=== PATIENT | female | born 1990 | race Caucasian/White ===

== ENCOUNTER 2018-12-16 07:42 | Emergency (ER) | payer MEDICAID ==
[~2018-12-16] VITALS: Ht 170.2 cm; Wt 144.2 kg
[2018-12-16 08:12] VITALS: BP 134/74
--- NOTE | 2018-12-16 08:12 | NUR ---
Pt taken to bed 2 triaged at bedside.
--- NOTE | 2018-12-16 08:15 | NUR ---
Pt presents to ED with complaints of epigastric pain that started this morning. Pt states she was diagnosed with pancreatitis 2 weeks ago from her medications she takes at home. Patient states this pain started this morning with nausea and vomiting. No active vomiting at this time. Pt c/o 9/10 pain, sharp, non radiating. AOX4, clear speech. Abdomen soft, active bowel sounds x 4 quadrants. Denies diarrhea. Denies fever c/o chills.
[2018-12-16] MEDS ORDERED: ONDANSETRON 4 MG/2 ML VIAL IVP ONE (08:50)
[2018-12-16] MEDS ORDERED: NACL 0.9% 1,000 ML IV ONE (08:50)
[2018-12-16] MEDS ORDERED: MORPHINE SULFATE 4 MG/ML SYR IVP ONE ×3 (08:50→11:25)
--- NOTE | 2018-12-16 09:01 | NUR ---
Pt report given to June MOSES. Transfer of care at this time.
[2018-12-16 09:11] LABS: BASOPHILS % (AUTO) 0.5 % (0.0-2.0); EOSINOPHILS % (AUTO) 1.1 % (0.0-4.0); HEMATOCRIT 34.3 % (36-48); LYMPHOCYTES % (AUTO) 24.6 % (20.5-51.1); MEAN CORPUSCULAR HEMOGLOBIN 26 pg (27-31); MEAN CORPUSCULAR HGB CONC 32 g/dL (33-37); MEAN CORPUSCULAR VOLUME 82.3 fL (80-94); MONOCYTES # (AUTO) 0.3 K/uL (0.8-1.0); MONOCYTES % (AUTO) 8.2 % (1.7-9.3); NEUTROPHILS # (AUTO) 2.8 K/uL (1.8-7.7); NEUTROPHILS % (AUTO) 65.6 % (42.2-75.2); PLATELET COUNT (AUTO) 240 K/uL (140-450); RED BLOOD CELL COUNT(AUTO) 4.17 MIL/uL (4.20-5.40); RED CELL DISTRIBUTION WIDTH 16.4 % (11.6-13.7); WHITE BLOOD COUNT (AUTO) 4.2 K/uL (4.8-10.8)
--- NOTE | 2018-12-16 09:45 | NUR ---
PT STATES STILL HAVING 9/[address] ARZATE NOTIFIED.
[2018-12-16 10:05] LABS: ANION GAP 15.2 (8-16); CARBON DIOXIDE 25.7 mmol/L (21-32); CREATININE 0.7 mg/dL (0.6-1.3); POTASSIUM 3.9 mmol/L (3.5-5.1)
[2018-12-16 10:16] LABS: ALBUMIN 3.5 g/dL (3.4-5.0); TOTAL BILIRUBIN 0.1 mg/dL (0.0-1.0)
[2018-12-16 10:24] LABS: APPEARANCE,URINE HAZY (CLEAR); BILIRUBIN,URINE NEGATIVE (NEGATIVE); BLOOD, URINE 3+ (NEGATIVE); COLOR,URINE YELLOW (YELLOW); LEUKOCYTE ESTERASE ,URINE NEGATIVE (NEGATIVE); NITRITE, URINE NEGATIVE (NEGATIVE); PH,URINE 6.5 (5.0-9.0); UGLUCOSE NEGATIVE (NEGATIVE)
--- NOTE | 2018-12-16 10:26 | NUR ---
pt states feeling better at this time. Her pain level is 5/10.
--- NOTE | 2018-12-16 10:30 | NUR ---
PT IS TAKEN TO DO CT SCAN BY SOCIAL SCIENCES INSTRUCTOR VIA WHEELCHAIR.
--- NOTE | 2018-12-16 10:50 | NUR ---
PT IS BACK FROM CT SCAN VIA WHEELCHAIR ASSISTANCE BY MANAGER OCCUPATIONAL.
[2018-12-16 11:02] LABS: RBC,URINE 0-5 /HPF (0-5); WBC,URINE 0-5 /HPF (0-5)
[2018-12-16] MEDS ORDERED: PANTOPRAZOLE 40 MG INJ VIAL IVP ONE (11:25)
[2018-12-16] MEDS ORDERED: DICYCLOMINE HCL LIQUID 10 MG/5 ML UDC PO ONE (11:25)
[2018-12-16 11:53] VITALS: BP 115/75
--- NOTE | 2018-12-16 11:53 | NUR ---
Patient discharged with v/s stable. Written and verbal after care instructions given and explained. Patient alert, oriented and verbalized understanding of instructions. Ambulatory with steady gait. All questions addressed prior to discharge. ID band removed. Patient advised to follow up with PMD. Rx of Zofran and Prilosec given. Patient educated on indication of medication including possible reaction and side effects. Opportunity to ask questions provided and answered.
== END 2018-12-16 11:53 | disposition home or self-care (01) ==
LOC: MED 07:42
DX: R10.13 Epigastric pain (principal); R11.2 Nausea with vomiting, unspecified; Z90.49 Acquired absence of other specified parts of digestive tract; Z88.8 Allergy status to other drugs, medicaments and biological substances
CPT/HCPCS: 36415; 74176; 80053; 81001; 81025; 83690; 85025; 96361; 96374; 96375; 96376; 99284; C9113; J2270; J2405; J7030

== ENCOUNTER 2019-07-25 13:55 | Emergency (ER) | payer MEDICAID ==
[~2019-07-25] VITALS: Ht 170.2 cm; Wt 139.7 kg
[2019-07-25 13:58] VITALS: BP 160/97
--- NOTE | 2019-07-25 13:59 | NUR ---
Patient ambulated to bed 11. RN evaluating patient at bedside.
--- NOTE | 2019-07-25 14:04 | NUR ---
pt ambulated to bathroom, steady gait.
--- NOTE | 2019-07-25 14:18 | NUR ---
28 Y/F PESENTS TO ED FOR Epigastric pain radiating to ruq 01/11, x 3 day , n/v/d. PT REPORTS PAIN RADIATED TO UPPER RIGHT BACK. REPORTS PAIN ON AND OFF SHARP PAIN THAT IS WORSE AFTER MEALS. PAIN IS UNALEVIATED BY TYLENOL. PT REPORTS URINARY FREQUENCY, DENIES HEMATURIA. PT DENIES FEVER. PT A&O X 4. RR EVEN AND UNLBORED, LUNGS CLEAR, ABD SOFT, BS ACTIVE X 4. RUQ TENDER UPON PALPATION. SKIN INTACT. 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
--- NOTE | 2019-07-25 14:19 | NUR ---
DR. SEARS AT BEDSIDE.
[2019-07-25] MEDS ORDERED: ONDANSETRON 4 MG/2 ML VIAL IVP ONE ×2 (14:25→16:30)
[2019-07-25] MEDS ORDERED: NACL 0.9% 1,000 ML IV SCH (14:25)
[2019-07-25] MEDS ORDERED: MORPHINE SULFATE 4 MG/ML SYR IVP ONE (14:25)
[2019-07-25] MEDS ORDERED: FAMOTIDINE 20 MG/2 ML VIAL IVP ONE (14:25)
--- NOTE | 2019-07-25 14:50 | NUR ---
LAB AT BEDSIDE.
[2019-07-25 15:17] LABS: BASOPHILS % (AUTO) 0.7 % (0.0-2.0); EOSINOPHILS % (AUTO) 0.7 % (0.0-4.0); HEMATOCRIT 32.6 % (36-48); HEMOGLOBIN 10.4 g/dL (12.0-16.0); LYMPHOCYTES # (AUTO) 1.1 K/uL (2.5-16.5); LYMPHOCYTES % (AUTO) 16.3 % (20.5-51.1); MEAN CORPUSCULAR HEMOGLOBIN 26 pg (27-31); MEAN CORPUSCULAR HGB CONC 32 g/dL (33-37); MEAN CORPUSCULAR VOLUME 81.7 fL (80-94); MONOCYTES # (AUTO) 0.3 K/uL (0.8-1.0); MONOCYTES % (AUTO) 4.9 % (1.7-9.3); NEUTROPHILS # (AUTO) 5.2 K/uL (1.8-7.7); NEUTROPHILS % (AUTO) 77.4 % (42.2-75.2); PLATELET COUNT (AUTO) 256 K/uL (140-450); RED BLOOD CELL COUNT(AUTO) 3.99 MIL/uL (4.20-5.40); RED CELL DISTRIBUTION WIDTH 16.8 % (11.6-13.7); WHITE BLOOD COUNT (AUTO) 6.7 K/uL (4.8-10.8)
[2019-07-25 16:24] LABS: ALBUMIN 3.4 g/dL (3.4-5.0); ANION GAP 14.1 (8-16); CARBON DIOXIDE 26.7 mmol/L (21-32); CREATININE 0.9 mg/dL (0.6-1.3); POTASSIUM 3.8 mmol/L (3.5-5.1); TOTAL BILIRUBIN 0.2 mg/dL (0.0-1.0)
--- NOTE | 2019-07-25 16:26 | NUR ---
Pt sitting up in bed, rr even, guarding abd.
--- NOTE | 2019-07-25 16:26 | NUR ---
Pt reports 10/10 pain and emesis x 1. Dr. Alfaro made aware.
[2019-07-25] MEDS ORDERED: fentaNYL 0.05 MG/ML VIAL IVP ONE (16:30)
[2019-07-25] MEDS ORDERED: ALUMINUM HYD/MAG/SIMETHICONE 30 ML UDC PO ONE (16:35)
[2019-07-25] MEDS ORDERED: LIDOCAINE VISCOUS 2% 20 ML UDC PO ONE (16:35)
--- NOTE | 2019-07-25 17:09 | NUR ---
Dr. Alfaro speaking with pt at this time.
[2019-07-25 17:28] VITALS: BP 132/92
--- NOTE | 2019-07-25 17:28 | NUR ---
Patient discharged with v/s stable. Written and verbal after care instructions given and explained. Patient alert, oriented and verbalized understanding of instructions. Ambulatory with steady gait. All questions addressed prior to discharge. ID band removed. Patient advised to follow up with PMD. Rx of zofran and omeprazole given. Patient educated on indication of medication including possible reaction and side effects. Opportunity to ask questions provided and answered.
--- NOTE | 2019-07-26 15:36 | NUR ---
LATE ENTRY- IV 0.9% NORMAL SALINE DISCONTINUED AT 1728.
== END 2019-07-25 17:28 | disposition home or self-care (01) ==
LOC: MED 13:55
DX: K29.70 Gastritis, unspecified, without bleeding (principal); R11.2 Nausea with vomiting, unspecified; F17.200 Nicotine dependence, unspecified, uncomplicated; Z90.49 Acquired absence of other specified parts of digestive tract; Z98.890 Other specified postprocedural states; Z88.8 Allergy status to other drugs, medicaments and biological substances; Z87.442 Personal history of urinary calculi
CPT/HCPCS: 36415; 80053; 81002; 81025; 83690; 85025; 96361; 96374; 96375; 96376; 99284; J2270; J2405; J3010; J3490; J7030